=== PATIENT | male | born 1980 | race Caucasian/White ===

== ENCOUNTER 2020-02-17 21:42 | Emergency (ER) | payer MEDICAID, OTHER ==
[~2020-02-17] VITALS: Ht 172.7 cm; Wt 120.5 kg
[~2020-02-17 21:42] MED LIST: AMOX-419 PO; BACDS PO; CLIN150C2 PO; DOXY-8 PO; NO HOME MEDS
[2020-02-17] MEDS ORDERED: clindamycin 600mg/D5W 50ml 50 ML IV ONE (22:15)
[2020-02-17] MEDS ORDERED: normal saline 1000ml 1,000 ML IV ONE (22:15)
[2020-02-17] MEDS ORDERED: ketorolac trometh. 30mg/ml inj. IV ONE (22:15)
[2020-02-17] MEDS ORDERED: TETanus/Pertussis (Acell)/Diphther VAC/PF (Tdap-Adult) 0.5ml syringe IMVAC ONE (22:20)
[2020-02-17 22:41] LABS: BASOPHILS # (AUTO) 0.1 X10'3 (0-0.2); BASOPHILS % (AUTO) 0.7 % (0-1); EOSINOPHILS # (AUTO) 0.1 X10'3 (0-0.9); EOSINOPHILS % (AUTO) 0.5 % (0-6); HEMATOCRIT 45.6 % (42.0-52.0); HEMOGLOBIN 15.3 g/dl (14.0-17.9); LYMPHOCYTES # (AUTO) 2.4 X10'3 (1.1-4.8); LYMPHOCYTES % (AUTO) 14.5 % (21-51); MEAN CORPUSCULAR HEMOGLOBIN 29.3 PG (27.0-31.0); MEAN CORPUSCULAR HGB CONC 33.6 g/dL (33.0-36.5); MEAN CORPUSCULAR VOLUME 87.3 FL (78-98); MONOCYTES # (AUTO) 1.7 X10'3 (0-0.9); MONOCYTES % (AUTO) 10.1 % (2-12); NEUTROPHILS # (AUTO) 12.2 X10'3 (1.8-7.7); NEUTROPHILS % (AUTO) 74.2 % (42-75); PLATELET COUNT 363 X10'3 (140-440); RED BLOOD COUNT 5.22 X10'6 (4.70-6.10); RED CELL DISTRIBUTION WIDTH 14.1 % (11.5-14.5); WHITE BLOOD COUNT 16.4 X10'3 (4.5-11.0)
[2020-02-17 22:42] LABS: CLARITY,URINE CLEAR (Clear); COLOR,URINE YELLOW (Yellow); GLUCOSE, URINE NEGATIVE (Neg); KETONES,URINE NEGATIVE (Neg); LEUKOCYTE ESTERASE ,URINE NEGATIVE (Neg); NITRITES, URINE NEGATIVE (Neg); OCCULT BLOOD,URINE TRACE-INTACT (Neg); PROTEIN,URINE NEGATIVE (Neg)
[2020-02-17 22:44] LABS: UA COLLECTION TYPE URINAL
--- NOTE | 2020-02-17 22:44 | NUR ---
PT STATES HE [facility] A [facility] REFUSED [facility]. CHARISMA PEREZ MADE AWARE
[2020-02-17 22:49] LABS: BACTERIA,URINE 1+ /HPF (Neg); RBC,URINE 0-2 /HPF (0-2); SQUAMOUS EPITHELIAL CELL,UR FEW /LPF (FEW); WBC,URINE NONE SEEN /HPF (0-4)
[2020-02-17 22:58] LABS: ALANINE AMINOTRANSFERASE 33 U/L (12-78); ALBUMIN 3.6 G/DL (3.4-5.0); ALBUMIN/GLOBULIN RATIO 0.8 (1.1-1.5); ALKALINE PHOSPHATASE 97 IU/L (46-116); ANION GAP 8 (8-16); ASPARTATE AMINO TRANSFERASE 12 U/L (10-37); BILIRUBIN,TOTAL 0.4 MG/DL (0.1-1.0); BLOOD UREA NITROGEN 12 MG/DL (7-18); BUN/CREATININE RATIO 9.4 (5.4-32.0); CALCIUM 8.9 MG/DL (8.5-10.1); CHLORIDE 100 MMOL/L (99-107); CREATININE 1.27 MG/DL (0.60-1.10); GLUCOSE 103 MG/DL (70-104); POTASSIUM 3.8 MMOL/L (3.5-5.1); SODIUM 134 MMOL/L (135-145); TOTAL CARBON DIOXIDE 26.1 MMOL/L (24-32); TOTAL PROTEIN 8.1 G/DL (6.4-8.2); eGFR 63 ML/MIN
[2020-02-17 23:01] LABS: MAGNESIUM 2.1 MG/DL (1.5-2.4); TROPONIN I < 0.04 NG/ML (0.0-0.05)
[2020-02-17 23:05] LABS: PARTIAL THROMBOPLASTIN TIME 29 SECONDS (22-32)
[2020-02-17] MEDS ORDERED: CLIN150C8 PO (23:11)
[2020-02-17 23:35] VITALS: BP 151/94
== END 2020-02-17 23:34 | disposition home or self-care (01) ==
LOC: ER 21:43
DX: L03.116 Cellulitis of left lower limb (principal); R53.1 Weakness; M79.89 Other specified soft tissue disorders; R51 Headache; R07.9 Chest pain, unspecified; R42 Dizziness and giddiness; J45.909 Unspecified asthma, uncomplicated; G89.29 Other chronic pain; F15.90 Other stimulant use, unspecified, uncomplicated; Z72.89 Other problems related to lifestyle; Z56.0 Unemployment, unspecified; Z59.0 Homelessness; Z79.2 Long term (current) use of antibiotics
CPT/HCPCS: 36415; 71045; 80053; 81001; 83605; 83735; 84145; 84484; 85025; 85610; 85730; 87040; 90715; 93005; 96365; 96375; 99285; J1885; J7030; J3490

== ENCOUNTER 2020-03-04 12:32 | Emergency (ER) | payer OTHER ==
[~2020-03-04] VITALS: Ht 172.7 cm; Wt 118.0 kg
[~2020-03-04 12:32] MED LIST changes: -AMOX-419 PO; -BACDS PO; -CLIN150C2 PO; +CLIN150C8 PO; -DOXY-8 PO
[2020-03-04 13:31] LABS: BASOPHILS # (AUTO) 0.2 X10'3 (0-0.2); BASOPHILS % (AUTO) 1.9 % (0-1); EOSINOPHILS # (AUTO) 0.3 X10'3 (0-0.9); HEMOGLOBIN 14.4 g/dl (14.0-17.9); MEAN CORPUSCULAR HGB CONC 33.5 g/dL (33.0-36.5); MEAN CORPUSCULAR VOLUME 86.4 FL (78-98); MEAN PLATELET VOLUME 7.1 FL (7.4-10.4); MONOCYTES # (AUTO) 0.9 X10'3 (0-0.9); MONOCYTES % (AUTO) 8.7 % (2-12); NEUTROPHILS # (AUTO) 5.1 X10'3 (1.8-7.7); NEUTROPHILS % (AUTO) 48.4 % (42-75); PLATELET COUNT 428 X10'3 (140-440); RED BLOOD COUNT 4.98 X10'6 (4.70-6.10); RED CELL DISTRIBUTION WIDTH 14.2 % (11.5-14.5); WHITE BLOOD COUNT 10.6 X10'3 (4.5-11.0)
[2020-03-04 13:49] LABS: ALANINE AMINOTRANSFERASE 40 U/L (12-78); ALBUMIN 3.6 G/DL (3.4-5.0); ALBUMIN/GLOBULIN RATIO 0.9 (1.1-1.5); ALKALINE PHOSPHATASE 73 IU/L (46-116); ANION GAP 7 (8-16); ASPARTATE AMINO TRANSFERASE 20 U/L (10-37); BILIRUBIN,TOTAL 0.4 MG/DL (0.1-1.0); BLOOD UREA NITROGEN 13 MG/DL (7-18); BUN/CREATININE RATIO 9.6 (5.4-32.0); CALCIUM 8.8 MG/DL (8.5-10.1); CHLORIDE 108 MMOL/L (99-107); CREATININE 1.36 MG/DL (0.60-1.10); GLUCOSE 90 MG/DL (70-104); POTASSIUM 3.5 MMOL/L (3.5-5.1); SODIUM 144 MMOL/L (135-145); TOTAL CARBON DIOXIDE 29.4 MMOL/L (24-32); TOTAL PROTEIN 7.8 G/DL (6.4-8.2); eGFR 58 ML/MIN
[2020-03-04 14:49] VITALS: BP 173/97
== END 2020-03-04 14:47 | disposition home or self-care (01) ==
LOC: ER 12:33
DX: T67.7XXA Heat edema, initial encounter (principal); T67.5XXA Heat exhaustion, unspecified, initial encounter; E86.0 Dehydration; J45.909 Unspecified asthma, uncomplicated; J42 Unspecified chronic bronchitis; F15.90 Other stimulant use, unspecified, uncomplicated; Z59.0 Homelessness; Z56.0 Unemployment, unspecified; Z79.899 Other long term (current) drug therapy; X58.XXXA Exposure to other specified factors, initial encounter; Y93.89 Activity, other specified; Y92.89 Other specified places as the place of occurrence of the external cause; Y99.8 Other external cause status
CPT/HCPCS: 36415; 71045; 80053; 83880; 84484; 85025; 93005; 99285